=== PATIENT | female | born 1955 | race Caucasian/White ===

== ENCOUNTER 2020-10-22 16:56 | Emergency (ER) | payer MEDICARE, MEDICAID ==
[~2020-10-22] VITALS: Ht 162.6 cm; Wt 70.3 kg
[2020-10-22 16:56] VITALS: BP_SYST 164
--- NOTE | 2020-10-22 16:56 | NUR ---
BROUGHT INTO TRIAGE TENT VIA WHEELCHAIR, TRIAGED AND AWAITING ER BED.
--- NOTE | 2020-10-22 17:01 | NUR ---
PT STATES THAT SHE HAS HAD CHEST PAIN, MID CHEST RADIATING TO LEFT ARM, FOR LAST 5 MONTHS. STATES SHE IS SCARED SHE WILL GET CHF LIKE HER MOTHER AND LIKE SHE DID. NO RESPIRATORY ISSUES, NO SOB, DENIES COUGHING.
--- NOTE | 2020-10-22 17:15 | NUR ---
ER at bedside examining patient.
--- NOTE | 2020-10-22 18:30 | NUR ---
Mellissa black in [facility] - 10/22/20 at 1830 by SDEDDW Pt resting in [place] at this time VSS
--- NOTE | 2020-10-22 18:31 | NUR ---
Pt resting in [place] VSS
[2020-10-22] MEDS ORDERED: ASPIRIN 81 MG TAB.CHEW PO ONE (18:45)
--- NOTE | 2020-10-22 18:48 | NUR ---
PT REFUSED BLOOD WORK TO BE DONE, DR PIMENTEL AWARE
--- NOTE | 2020-10-22 19:29 | NUR ---
RECEIEVED REPORT FROM HANNAH AMARO FOR CONTINUATION OF CARE.
--- NOTE | 2020-10-22 20:22 | NUR ---
DR. PIMENTEL AT BEDSIDE SPEAKING WITH PATIENT.
--- NOTE | 2020-10-22 20:43 | NUR ---
PATIENT FRIEND, MARLO, WILL BE COMING TO [employer]ICE TECHNICIAN PATIENT ONCE DISCHARGED.
[2020-10-22 21:02] VITALS: BP_SYST 132
--- NOTE | 2020-10-22 21:02 | NUR ---
Patient given written and verbal discharge instructions and verbalizes understanding. ER MD discussed with patient the results and treatment provided. Patient in stable condition. ID arm band removed. NO Rx given. Patient educated on pain management and to follow up with PMD. Pain Scale 0/10. Opportunity for questions provided and answered. Medication side effect fact sheet provided.
== END 2020-10-22 21:02 | disposition home or self-care (01) ==
LOC: SED 16:56
DX: F41.9 Anxiety disorder, unspecified (principal); R07.89 Other chest pain; I10 Essential (primary) hypertension; Z88.0 Allergy status to penicillin
CPT/HCPCS: 71045; 93005; 99283